=== PATIENT | female | born 1960 | race Caucasian/White ===

== ENCOUNTER 2016-06-15 07:41 | Inpatient (IN) | payer MEDICAID ==
[~2016-06-15] VITALS: Ht 162.6 cm; Wt 93.0 kg
[2016-06-15] MEDS ORDERED: ASPIRIN 325 MG TABLET PO ONE (07:44)
[2016-06-15] MEDS ORDERED: FENTANYL PF 100 MCG/2ML ONE (07:50)
[2016-06-15] MEDS ORDERED: VERAPAMIL 2.5 MG/ML, 2ML ONE (07:51)
[2016-06-15] MEDS ORDERED: TICAGRELOR 90 MG TABLET ONE (07:51)
[2016-06-15] MEDS ORDERED: HEPARIN 1,000 UNITS/ML, 10ML ONE (07:51)
[2016-06-15] MEDS ORDERED: MIDAZOLAM 1 MG/ML, 5ML ONE (07:51)
[2016-06-15] MEDS ORDERED: LIDOCAINE 2%, 20ML ONE (07:51)
[2016-06-15] MEDS ORDERED: BIVALIRUDIN 250 MG ONE (07:51)
[2016-06-15] MEDS ORDERED: FENTANYL PF 100 MCG/2ML IVPush PRN (08:00)
[2016-06-15] MEDS ORDERED: SODIUM CHLORIDE 0.9% 1,000 ML IV SCH (08:55)
[2016-06-15] MEDS ORDERED: ONDANSETRON 2MG/ML, 2ML IVPush PRN (09:00)
[2016-06-15] MEDS ORDERED: ACETAMINOPHEN 325 MG TABLET PO PRN (09:00)
[2016-06-15] MEDS ORDERED: BISACODYL 5 MG EC TABLET PO PRN (09:00)
[2016-06-15] MEDS ORDERED: ZOLPIDEM 5MG TABLET PO PRN (09:00)
[2016-06-15] MEDS ORDERED: MORPHINE SULFATE 4 MG/ML, 1ML IVPush PRN (09:00)
[2016-06-15] MEDS: PRAMIPEXOLE 0.5MG TABLET PO SCH ×2 (10:38→20:11)
[2016-06-15] MEDS: METOPROLOL SUCCINATE 25 MG TAB.ER.24H PO SCH (10:38)
[2016-06-15] MEDS: TICAGRELOR 90 MG TABLET PO SCH ×2 (10:39→20:11)
[2016-06-15] MEDS: ASPIRIN 81 MG TABLET EC PO SCH (10:41)
[2016-06-15] MEDS: ISOSORBIDE MONONITRATE ER 30 MG TABLET PO SCH (10:41)
[2016-06-15 19:30] VITALS: BP 134/72
[2016-06-15] MEDS: ATORVASTATIN 80 MG TABLET PO SCH (20:11)
[2016-06-16 04:48] LABS: BLOOD UREA NITROGEN 8 mg/dL (7-18)
[2016-06-16] MEDS: METOPROLOL SUCCINATE 25 MG TAB.ER.24H PO SCH (06:21)
[2016-06-16] MEDS: ISOSORBIDE MONONITRATE ER 30 MG TABLET PO SCH (08:49)
[2016-06-16] MEDS: TICAGRELOR 90 MG TABLET PO SCH ×2 (08:49→20:37)
[2016-06-16] MEDS: ASPIRIN 81 MG TABLET EC PO SCH (08:49)
[2016-06-16] MEDS: PRAMIPEXOLE 0.5MG TABLET PO SCH ×2 (08:49→20:37)
[2016-06-16] MEDS ORDERED: IBUPROFEN 600 MG TABLET PO ONE (10:30)
[2016-06-16 20:35] VITALS: BP 111/66
[2016-06-16] MEDS: ATORVASTATIN 80 MG TABLET PO SCH (20:37)
[2016-06-16] MEDS ORDERED: OMEPRAZOLE 20 MG CAPSULE.DR PO SCH (21:30)
[2016-06-16 21:47] VITALS: BP_SYST 100; BP_SYST 111; BP_SYST 75; BP_DIAS 52; BP_DIAS 62; BP_DIAS 74
[2016-06-16] MEDS ORDERED: OMEPRAZOLE 20 MG CAPSULE.DR PO ONE (22:30)
[2016-06-17 03:25] VITALS: BP_SYST 96; BP_DIAS 59; BP_DIAS 62
[2016-06-17] MEDS: METOPROLOL SUCCINATE 25 MG TAB.ER.24H PO SCH (06:10)
[2016-06-17] MEDS ORDERED: ISOS30TA8 PO (07:47)
[2016-06-17] MEDS ORDERED: TICA90TA PO (07:47)
[2016-06-17] MEDS ORDERED: ATOR80TA75 PO (07:47)
[2016-06-17] MEDS ORDERED: ASPI-621 PO (07:47)
[2016-06-17] MEDS ORDERED: METO25TA91 PO (07:47)
[2016-06-17 07:54] VITALS: BP 112/68
[2016-06-17] MEDS: ISOSORBIDE MONONITRATE ER 30 MG TABLET PO SCH (07:59)
[2016-06-17] MEDS: PRAMIPEXOLE 0.5MG TABLET PO SCH (07:59)
[2016-06-17] MEDS: TICAGRELOR 90 MG TABLET PO SCH (07:59)
[2016-06-17] MEDS: ASPIRIN 81 MG TABLET EC PO SCH (07:59)
[2016-06-17] MEDS: OMEPRAZOLE 20 MG CAPSULE.DR PO SCH ×2 (08:03→08:10)
[2016-06-17] MEDS ORDERED: PNEUMOCOCCAL 23 VACCINE IM-VACC ONE (09:30)
== END 2016-06-17 10:15 | disposition home or self-care (01) | DRG 251 ==
LOC: EDBD 07:41 → MERGE 07:41 → ED 07:53 → EDIP 07:54 → ED 07:59 → CCU 09:04 → 5SO 06-16 18:54
PROVIDERS: ADMIT Internal Medicine Cardiovascular Disease; ATTEND Internal Medicine Cardiovascular Disease
PROC: 02723ZZ Dilation of Coronary Artery, Three Arteries, Percutaneous Approach (ICD-10-PCS; principal; 2016-06-15)
PROC: 4A023N7 Measurement of Cardiac Sampling and Pressure, Left Heart, Percutaneous Approach (ICD-10-PCS; 2016-06-15)
PROC: B2111ZZ Fluoroscopy of Multiple Coronary Arteries using Low Osmolar Contrast (ICD-10-PCS; 2016-06-15)
PROC: B2151ZZ Fluoroscopy of Left Heart using Low Osmolar Contrast (ICD-10-PCS; 2016-06-15)
DX: I21.11 ST elevation (STEMI) myocardial infarction involving right coronary artery (principal); E78.5 Hyperlipidemia, unspecified; F17.210 Nicotine dependence, cigarettes, uncomplicated; K21.9 Gastro-esophageal reflux disease without esophagitis; I25.10 Atherosclerotic heart disease of native coronary artery without angina pectoris
CPT/HCPCS: 36415; 71010; 80047; 80048; 82040; 84484; 85014; 85018; 85025; 85610; 85730; 87081; 90732; 93005; 93306; 93458; C1894; J0583; J1644; J2250; J3010; J3490; C1725; C1769; C1887; Q9967

== ENCOUNTER → 2017-06-15 | Outpatient (CLI) | payer MEDICAID ==
[~2017-06-15] MED LIST: ASPI-621 PO; ATOR-2 PO; ISOS30TA8 PO; METO25TA91 PO; TICA90TA PO
== END | disposition home or self-care (01) ==
LOC: CFH 08:15
PROVIDERS: ATTEND Nurse Practitioner Family
DX: J43.9 Emphysema, unspecified (principal); J84.10 Pulmonary fibrosis, unspecified; Z72.0 Tobacco use
CPT/HCPCS: 71250

== ENCOUNTER 2020-05-19 17:14 | Emergency (ER) | payer MEDICAID ==
[~2020-05-19] VITALS: Ht 162.6 cm; Wt 125.0 kg
[~2020-05-19 17:14] MED LIST changes: -ASPI-621 PO; +ASPI81TA45 PO
[2020-05-19] MEDS ORDERED: LIDOCAINE-MPF 1%, 5ML INFIL ONE (17:30)
[2020-05-19] MEDS ORDERED: PLEASE ENTER HEIGHT AND WEIGHT MC SCH (17:30)
[2020-05-19] MEDS ORDERED: DIPH,PERTUSS(ACELL),TET VAC/PF 0.5 ML IM-VACC ONE ×2 (17:30→17:40)
[2020-05-19] MEDS ORDERED: LIDOCAINE-MPF 1%, 2ML ONE (17:40)
[2020-05-19] MEDS ORDERED: NEOSPORIN OINT. PKT 1 PACKET ONE (19:06)
[2020-05-19 19:31] VITALS: BP 138/62
--- NOTE | 2020-05-19 19:31 | NUR ---
Patient given discharge instructions and they have confirmed that they understand the instructions. Patient ambulatory with steady gait.
== END 2020-05-19 19:33 | disposition home or self-care (01) ==
LOC: ED 19:21
DX: S01.81XA Laceration without foreign body of other part of head, initial encounter (principal); Z87.891 Personal history of nicotine dependence; W18.30XA Fall on same level, unspecified, initial encounter; Y93.89 Activity, other specified; Y92.009 Unspecified place in unspecified non-institutional (private) residence as the place of occurrence of the external cause; Y99.8 Other external cause status
CPT/HCPCS: 12052; 90471; 90715; 99284